=== PATIENT | male | born 1935 | race Caucasian/White ===

== ENCOUNTER 2020-12-01 19:26 | Emergency (ER) | payer OTHER, SELFPAY ==
[~2020-12-01] VITALS: Ht 180.3 cm; Wt 90.7 kg
[2020-12-01 19:39] VITALS: BP_SYST 135
[2020-12-01] MEDS ORDERED: IPRATROPIUM BROM 0.5 MG/2.5 ML VIAL.NEB (ATROVENT) INH ONE (20:15)
[2020-12-01] MEDS ORDERED: predniSONE 20 MG TABLET PO ONE (20:15)
[2020-12-01] MEDS ORDERED: NACL 0.9% 1,000 ML IV ONE (20:15)
[2020-12-01] MEDS ORDERED: LevALBUTEROL HCL 1.25 MG/0.5 ML *CONC.* VIAL.NEB (XOPENEX CONC.) INH ONE ×2 (20:15→22:45)
[2020-12-01] MEDS ORDERED: GLUC-119 PO (20:18)
[2020-12-01] MEDS ORDERED: TAMS-11 PO (20:18)
[2020-12-01] MEDS ORDERED: UMEC1BLS IH (20:18)
[2020-12-01] MEDS ORDERED: GABA800T PO (20:18)
[2020-12-01] MEDS ORDERED: ALBMDI INH (20:18)
[2020-12-01] MEDS ORDERED: OMEP20CA15 PO (20:18)
[2020-12-01] MEDS ORDERED: POTA20TA83 PO (20:18)
[2020-12-01] MEDS ORDERED: DIAZ5SOL PO (20:18)
[2020-12-01] MEDS ORDERED: PERC10 PO (20:18)
[2020-12-01] MEDS ORDERED: IRBE150T48 PO (20:18)
[2020-12-01] MEDS ORDERED: FINA5TAB3 PO (20:18)
[2020-12-01] MEDS ORDERED: LEVO200T8 PO (20:18)
[2020-12-01] MEDS ORDERED: RIVA20TA PO (20:18)
[2020-12-01] MEDS ORDERED: CALMO120 TP (20:18)
[2020-12-01] MEDS ORDERED: LIP40 PO (20:18)
[2020-12-01] MEDS ORDERED: ATRMDI INH (20:18)
[2020-12-01] MEDS ORDERED: METO2.5T6 PO (20:18)
[2020-12-01] MEDS ORDERED: FURO20TA4 PO (20:18)
[2020-12-01] MEDS ORDERED: MULT-1117 PO (20:18)
[2020-12-01 20:30] LABS: ANION GAP 5 (5-15); CHLORIDE 106 mmol/L (98-107); CREATININE 1.45 mg/dL (0.55-1.30); GLUCOSE 99 mg/dL (70-99); POTASSIUM 4.3 mmol/L (3.5-5.1); SODIUM SERUM 139 mmol/L (136-145); UREA NITROGEN, BLOOD 14 mg/dL (8-21)
[2020-12-01 20:37] LABS: BASOPHILS # (AUTO) 0.1 K/uL (0.0-0.2); BASOPHILS % (AUTO) 1.3 % (0.0-2.0); EOSINOPHILS # (AUTO) 0.3 K/uL (0.0-0.4); EOSINOPHILS % (AUTO) 4.3 % (0.0-4.0); HEMATOCRIT 31.3 % (36-54); LYMPHOCYTES # (AUTO) 1.7 K/uL (1.0-5.5); LYMPHOCYTES % (AUTO) 27.3 % (20.5-51.5); MEAN CORPUSCULAR HEMOGLOBIN 25 pg (27-31); MEAN CORPUSCULAR HGB CONC 32 % (32-36); MEAN CORPUSCULAR VOLUME 79 fL (79.0-98.0); MONOCYTES # (AUTO) 0.8 K/uL (0.0-1.0); MONOCYTES % (AUTO) 13.9 % (1.7-9.3); NEUTROPHILS # (AUTO) 3.2 K/uL (1.8-7.7); NEUTROPHILS % (AUTO) 53.2 % (40.0-70.0); PLATELET COUNT (AUTO) 183 K/uL (130-430); RED BLOOD CELL COUNT(AUTO) 3.95 MIL/uL (4.2-6.2)
[2020-12-01 20:41] LABS: ALANINE AMINOTRANSFERASE 15 U/L (12-78); ALBUMIN 3.3 g/dL (3.4-4.8); ASPARTATE AMINOTRANSFERASE 20 U/L (10-37); TOTAL BILIRUBIN 0.2 mg/dL (0.0-1.0)
[2020-12-01 20:57] LABS: INR 1.1 (0.80-1.20); PROTHROMBIN TIME 11.4 SECS (9.5-12.5)
[2020-12-01] MEDS ORDERED: AZITHROMYCIN 250 MG TABLET PO ONE (23:00)
[2020-12-01 23:38] VITALS: BP_SYST 132
== END 2020-12-01 23:38 | disposition home or self-care (01) ==
LOC: SED 19:26
DX: J44.1 Chronic obstructive pulmonary disease with (acute) exacerbation (principal); J06.9 Acute upper respiratory infection, unspecified; D64.9 Anemia, unspecified; I48.91 Unspecified atrial fibrillation; Z90.49 Acquired absence of other specified parts of digestive tract; Z86.73 Personal history of transient ischemic attack (TIA), and cerebral infarction without residual deficits; Z79.899 Other long term (current) drug therapy; Z20.822 Contact with and (suspected) exposure to COVID-19
CPT/HCPCS: 36415; 36600; 71045; 80053; 82803; 83605; 83880; 84484; 85025; 85379; 85610; 85730; 87040; 87426; 93005; 94640; 96360; 96361; 99285; J7030

== ENCOUNTER 2021-11-19 09:10 | Emergency (ER) | payer BC, SELFPAY ==
[~2021-11-19] VITALS: Ht 177.8 cm; Wt 97.5 kg
[~2021-11-19 09:10] MED LIST: ALBMDI INH; ATRMDI INH; CALMO120 TP; DIAZ5SOL PO; FINA5TAB3 PO; FURO20TA4 PO; GABA800T PO; GLUC-119 PO; IRBE150T48 PO; LEVO200T8 PO; LIP40 PO; METO2.5T6 PO; MULT-1117 PO; OMEP20CA15 PO; PERC10 PO; POTA-197 PO; RIVA20TA PO; TAMS-11 PO; UMEC1BLS IH
--- NOTE | 2021-11-19 09:10 | NUR ---
ER at [facility] examining patient.
[2021-11-19 09:35] VITALS: BP_SYST 116
--- NOTE | 2021-11-19 09:35 | NUR ---
Patient to ER bed 1 to gown for evaluation. Side rails up. Report given to Zabrina.
--- NOTE | 2021-11-19 09:35 | NUR ---
Pt. called 911 this am when he became more SOB than normal, stated about midnight he was slightly SOB but this am when he was doing laundry it worsened and he became concerned, has hx. of COPD and CHF and uses 2L/min via NC typically, currently on 2L with a sat. of 98%
--- NOTE | 2021-11-19 10:04 | NUR ---
patient to ED at this time with complaints of sudden onset of SOB this AM. patient states he became afraid due to him becoming dypenic with exertion. patient uses a walker to get around and ambulate. patient lives in board and care with . NURSE SUBSTANCE ABUSE called EMS to bring him to emergency room. patient alert and oriented x 3, cooperative, vss. patient NSR with PVC's on the monitor.
[2021-11-19 11:06] LABS: BASOPHILS % (AUTO) 0.3 % (0.0-2.0); EOSINOPHILS # (AUTO) 0.1 K/uL (0.0-0.4); EOSINOPHILS % (AUTO) 0.4 % (0.0-4.0); HEMATOCRIT 31.7 % (36-54); LYMPHOCYTES # (AUTO) 1.2 K/uL (1.0-5.5); LYMPHOCYTES % (AUTO) 7.3 % (20.5-51.5); MEAN CORPUSCULAR HEMOGLOBIN 21 pg (27-31); MEAN CORPUSCULAR HGB CONC 30 % (32-36); MEAN CORPUSCULAR VOLUME 71 fL (79.0-98.0); MONOCYTES # (AUTO) 1.8 K/uL (0.0-1.0); PLATELET COUNT (AUTO) 209 K/uL (130-430); RED BLOOD CELL COUNT(AUTO) 4.49 MIL/uL (4.2-6.2); RED CELL DISTRIBUTION WIDTH 18.3 % (9.0-15.0)
[2021-11-19 11:08] LABS: HEMOGLOBIN 9.5 g/dL (14.0-18.0)
[2021-11-19 11:23] LABS: ANION GAP 7 (5-15); CALCIUM 8.4 mg/dL (8.4-11.0); CHLORIDE 103 mmol/L (98-107); CREATININE 1.29 mg/dL (0.55-1.30); GLUCOSE 120 mg/dL (70-99); POTASSIUM 4.2 mmol/L (3.5-5.1); SODIUM SERUM 142 mmol/L (136-145); UREA NITROGEN, BLOOD 20 mg/dL (8-21)
[2021-11-19 11:28] LABS: ALANINE AMINOTRANSFERASE 21 U/L (12-78); ALBUMIN 3.3 g/dL (3.4-4.8); ASPARTATE AMINOTRANSFERASE 15 U/L (10-37); TOTAL BILIRUBIN 0.8 mg/dL (0.0-1.0)
--- NOTE | 2021-11-19 14:39 | NUR ---
PATIENT CONDITION GOES UNCHANGED, PATIENT DENIES SOB, PATIENT OXYGEN SAT 94% ON 6L VIA N/C. PATIENT SLEEPING AT THIS TIME. DENIES PAIN
--- NOTE | 2021-11-19 15:00 | NUR ---
PATIENT CONDITION GOES UNCHANGED, VSS, WAITING FOR RE-EVALUATION FROM
--- NOTE | 2021-11-19 16:37 | NUR ---
PATIENT CONDITION IMPROVED. NO SOB AT THIS TIME. PATIENT ON HOME OXYGEN. PATIENT PULSOX 96% AT THIS TIME ON 2L, DENIES PAIN OR DISCOMFORT. WILL BE GOING BACK HOME AT 5:30PM. WILL CONTINUE TO MONITOR THE PATIENT.
--- NOTE | 2021-11-19 18:26 | NUR ---
Patient given written and verbal discharge instructions and verbalizes understanding. ER MD discussed with patient the results and treatment provided. Patient in stable condition. ID arm band removed. IV catheter removed intact and dressing applied, no active bleeding, Swelling or eccymosis Rx of predinisone and antibiotics given. Patient educated on pain management and to follow up with PMD. Pain Scale . Opportunity for questions provided and answered. Medication side effect fact sheet provided.
[2021-11-19 18:27] VITALS: BP_SYST 112
== END 2021-11-19 18:27 | disposition home or self-care (01) ==
LOC: SED 09:10
DX: I50.9 Heart failure, unspecified (principal); J44.1 Chronic obstructive pulmonary disease with (acute) exacerbation; J44.9 Chronic obstructive pulmonary disease, unspecified; Z79.899 Other long term (current) drug therapy
CPT/HCPCS: 36415; 71045; 80053; 83605; 83880; 85025; 93005; 99285